=== PATIENT | male | born 1985 | race Caucasian/White ===

== ENCOUNTER 2016-09-14 00:29 | Outpatient (CLI) | payer SELFPAY | END 2016-09-14 00:30 | disposition EMS.NT | LOC: EMS 00:29 | PROVIDERS: ATTEND Surgery | DX: S61.311A Laceration without foreign body of left index finger with damage to nail, initial encounter (principal); X58.XXXA Exposure to other specified factors, initial encounter; Y93.89 Activity, other specified; Y92.833 Campsite as the place of occurrence of the external cause ==